=== PATIENT | female | born 1965 | race Two or more races ===

== ENCOUNTER → 2016-05-25 | Outpatient (CLI) | payer OTHER ==
--- NOTE | 2016-05-25 13:05 | WOMENS IMAGING REPORT ---
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 TECHNIQUE: Dual-Energy X-ray Absorptiometry (DEXA) of the AP Spine and Hip. LIMITATIONS: None. FINDINGS: LUMBAR SPINE: The bone mineral density (BMD) measured from L1-L4 in the AP projection correlates with a T-score of -2.4, which is osteopenia as defined by the World Health Organization. HIP: The bone mineral density (BMD) measured in the left hip correlates with a T-score of -2.0, which is o steopenia as defined by the World Health Organization. COMMENT: Osteopenia. The World Health Organization defines low BMD as follows: T-score: Normal: Greater than -1.0 Osteopenia: Between -1.0 and -2.5 Osteoporosis: Less than -2.5 without fractures Established osteoporosis: Less than -2.5 with fractures In general, you may wish to consider: Diagnosis Treatment Follow-up DEXA Normal BMD Prevention 2-3 years Osteopenia Prevention/Therapy 1-2 years Osteoporosis Therapy Yearly TECHNICAL DOCUMENTATION: JOB ID: [id number] [email or web address]- All Rights Reserved
== END ==
LOC: WI 10:19
PROVIDERS: ATTEND Specialist
DX: Z79.811 Long term (current) use of aromatase inhibitors (principal)
CPT/HCPCS: 77080

== ENCOUNTER 2020-04-15 08:16 | Emergency (ER) | payer BC, OTHER ==
[2020-04-15] MEDS ORDERED: NORMAL SALINE 1000 ML 1,000 ML IV ONE (09:54)
--- NOTE | 2020-04-15 10:16 | ER Document Report ---
Entered by RYLEE FISCHER SCRIBE 04/15/20 0853 Acting as scribe for:JUAN LEONG MD ED Respiratory Problem - General Chief Complaint: Shortness Of Breath Stated Complaint: COUGH Time Seen by Provider: 04/15/20 08:44 Primary Care Provider: CIRO ANDREWS MD [ACTIVE STAFF] - Follow up as needed Mode of Arrival: Ambulatory Information source: Patient Notes: This 55 year old female patient who recently tested positive for COVID on 04/13 presents to the ED today with complaints of shortness of breath for the past x1 week. Patient reports associated sore throat and dry nonproductive cough. She notes it hurts to cough. Denies fever or chills. Per nursing, patient was reportedly had O2 sats of 93% on RA and was placed on 2L supplemental O2 via NC with O2 sats improving to 96%. TRAVEL OUTSIDE OF THE [place] IN LAST 30 DAYS: No - Related Data Allergies/Adverse Reactions: No Known Allergies Allergy (Verified 03/11/15 09:18) Past Medical History - General Information source: Patient, [facility] Records - Social History Smoking Status: Unknown if Ever Smoked Smoking Education Provided: No Family History: Reviewed & Not Pertinent Patient has suicidal ideation: No Patient has homicidal ideation: No - Past Medical History Cardiac Medical History: Reports: Hx Hypertension - no meds Endocrine Medical History: Reports: Hx Hypothyroidism Malignancy Medical History: Reports: Hx Breast Cancer - In remission since 2014 Musculoskeletal Medical History: Reports Hx Arthritis - osteo - Immunizations Hx Diphtheria, Pertussis, Tetanus Vaccination: No Review of Systems - Review of Systems Constitutional: See HPI. denies: Chills, Fever EENT: See HPI, Throat pain Cardiovascular: No symptoms reported Respiratory: See HPI, Cough, Short of breath. denies: Sputum Gastrointestinal: No symptoms reported Genitourinary: No symptoms reported Female Genitourinary: No symptoms reported Musculoskeletal: No symptoms reported Skin: No symptoms reported Hematologic/Lymphatic: No symptoms reported Neurological/Psychological: No symptoms reported -: Yes All other systems reviewed and negative Physical Exam - Vital signs Vitals: Temp Pulse Resp BP Pulse Ox 98.2 F 79 18 127/79 H 95 04/15/20 08:21 04/15/20 08:21 04/15/20 08:21 04/15/20 08:21 04/15/20 08:21 Interpretation: Normal - General General appearance: Alert - resting comfortably In distress: None - HEENT Head: Normocephalic, Atraumatic Eyes: Normal Pupils: PERRL - Respiratory Respiratory status: Other - 97% O2 sats via NC Chest status: Nontender Breath sounds: Decreased air movement - Diminished breath sounds Chest palpation: Normal - Cardiovascular Rhythm: Regular Heart sounds: Normal auscultation, S1 appreciated, S2 appreciated Murmur: No Friction rub: No Gallop: None auscultated - Abdominal Inspection: Normal Distension: No distension Bowel sounds: Normal Tenderness: Nontender - Abdomen soft Organomegaly: No organomegaly - Back Back: Normal, Nontender - Extremities General upper extremity: Normal inspection General lower extremity: Normal inspection. No: Edema - Neurological Neuro grossly intact: Yes Orientation: AAOx4 [place] Coma Scale Eye Opening: Spontaneous [place] Coma Scale Verbal: Oriented [place] Coma Scale Motor: Obeys Commands [place] Coma Scale Total: 15 - Psychological Associated symptoms: Normal affect, Normal mood - Skin Skin Temperature: Warm Skin Moisture: Dry Skin Color: Normal Course - Re-evaluation Re-evalutation: 04/15/20 14:04 Patient at rest on room air has a saturation of 97%. - Vital Signs Vital signs: Temp Pulse Resp BP Pulse Ox 98.2 F 79 18 127/79 H 97 04/15/20 08:21 04/15/20 08:21 04/15/20 12:33 04/15/20 08:21 04/15/20 13:00 04/15/20 14:04 Vital signs stable afebrile respiratory rate 18 - Laboratory Result Diagrams: 04/15/20 10:00 04/15/20 10:00 Laboratory results interpreted by me: 04/15/20 04/15/20 10:00 10:00 APTT 36.7 H D-Dimer 0.83 H Ferritin 265.00 H AST 46 H ALT 40 H Lactate Dehydrogenase 270 H C-Reactive Protein 75.3 H Laboratories consistent with COVID-19 shows a C-reactive protein 75 LDH the 8270 ferritin of 265 and a D-dimer of 0.8 - Diagnostic Test Radiology reviewed: Image reviewed, Reports reviewed Radiology results interpreted by me: 04/15/20 13:42 Chest X-Ray 04/15/20 09:51 IMPRESSION: Bilateral basilar predominant peripheral parenchymal opacities. Patchy peripheral opacities are typical finding in the setting of COVID-19. Chest/Abdomen CTA 04/15/20 11:15 IMPRESSION: 1. Slightly limited study. No obvious pulmonary emboli. No aortic aneurysm or dissection. 2. Predominantly posterior subpleural opacification: Pulmonary fibrosis versus an atypical infectious/ inflammatory process such as COVID-19. 3. Prominent right lobe of the thyroid gland. Consider thyroid ultrasound if clinically indicated. 04/15/20 14:06 Chest x-ray shows peripheral parenchymal opacities typical for COVID-19 CTA of chest and abdomen shows no obvious pulmonary emboli patient has predominantly posterior subpleural opacifications pulmonary fibrosis versus atypical infectious/inflammatory process is COVID-19. Patient reports that she was tested positive for Covid 19 at an outpatient clinic on April 13, [id number] Discharge - Discharge Clinical Impression: COVID-19 Condition: Good Disposition: HOME, SELF-CARE Instructions: COVID-19 Guidance for Persons Under Investigation Referrals: CIRO ANDREWS MD [ACTIVE STAFF] - Follow up as needed I personally performed the services described in the documentation, reviewed and edited the documentation which was dictated to the scribe in my presence, and it accurately records my words and actions.
[2020-04-15 10:21] LABS: ABSOLUTE EOSINOPHILS # (AUTO) 0.1 10^3/uL (0.0-0.6); ABSOLUTE LYMPHOCYTES (AUTO) 1.3 10^3/uL (0.5-4.7); ABSOLUTE MONOCYTES (AUTO) 0.4 10^3/uL (0.1-1.4); ABSOLUTE NEUT (AUTO) 4.7 10^3/uL (1.7-8.2); BASOPHILS % (AUTO) 0.4 % (0-2); HEMATOCRIT 40.9 % (36.0-47.0); HEMOGLOBIN 13.5 g/dL (12.0-15.5); LYMPHOCYTES % (AUTO) 19.7 % (13-45); MEAN CORPUSCULAR HEMOGLOBIN 29.8 pg (27.0-33.4); MEAN CORPUSCULAR VOLUME 90 fl (80-97); MONOCYTES % (AUTO) 6.8 % (3-13); PLATELET COUNT 291 10^3/uL (150-450); RED BLOOD COUNT 4.54 10^6/uL (3.72-5.28); SEGMENTED NEUTROPHILS % (AUTO) 72.1 % (42-78); TOTAL CELLS COUNTED % (AUTO) 100 %; WHITE BLOOD COUNT 6.5 10^3/uL (4.0-10.5)
[2020-04-15 10:29] LABS: INTERNATIONAL RATION (INR) 0.96
[2020-04-15 10:32] LABS: D-DIMER 0.83 ug/mL (0.00-0.50)
[2020-04-15 10:44] LABS: ALBUMIN 4.3 g/dL (3.5-5.0); ALKALINE PHOSPHATASE 119 U/L (38-126); ANION GAP 10 (5-19); ASPARTATE AMINO TRANSFERASE 46 U/L (14-36); BILIRUBIN,DIRECT 0.2 mg/dL (0.0-0.4); BILIRUBIN,TOTAL 0.9 mg/dL (0.2-1.3); BLOOD UREA NITROGEN 10 mg/dL (7-20); C-REACTIVE PROTEIN 75.3 mg/L (<10.0); CALCIUM 9.5 mg/dL (8.4-10.2); CARBON DIOXIDE 28 mmol/L (22-30); CHLORIDE 102 mmol/L (98-107); GLUCOSE 92 mg/dL (75-110); POTASSIUM 4.2 mmol/L (3.6-5.0); TOTAL PROTEIN 7.7 g/dL (6.3-8.2)
--- NOTE | 2020-04-15 10:54 | RADIOLOGY REPORT (SQ) ---
EXAM DESCRIPTION: CHEST SINGLE VIEW IMAGES COMPLETED DATE/TIME: 04/15/2020 10:40 am REASON FOR STUDY: sobr/covid postive COMPARISON: PA and lateral views of the chest from 05/27/2015. EXAM PARAMETERS: NUMBER OF VIEWS: One view. TECHNIQUE: An AP view of the chest was obtained. RADIATION DOSE: NA LIMITATIONS: None. FINDINGS: LUNGS AND PLEURA: Bilateral basilar predominant peripheral parenchymal opacities. The cos tophrenic sulci are blunted. There is no pneumothorax. MEDIASTINUM AND HILAR STRUCTURES: No mediastinal or hilar contour abnormality. HEART AND VASCULAR STRUCTURES: The cardiac silhouette and pulmonary vasculature are within normal cordova its. BONES: No acute findings. HARDWARE: None in the chest. OTHER: No other finding. IMPRESSION: Bilateral basilar predominant peripheral parenchymal opacities. Patchy peripheral opaci ties are typical finding in the setting of COVID-19. TECHNICAL DOCUMENTATION: JOB ID: [id number] 2010 [employer]- All Rights Reserved Reading location - IP/workstation name: [email or web address]
[2020-04-15 10:59] LABS: PARTIAL THROMBOPLASTIN TIME 36.7 SEC (23.5-35.8)
--- NOTE | 2020-04-15 12:55 | RADIOLOGY REPORT (SQ) ---
EXAM DESCRIPTION: CTA CHEST IMAGES COMPLETED DATE/TIME: 04/15/2020 12:33 pm REASON FOR STUDY: Elevated D dimer/positive COVID 19 COMPARISON: None. TECHNIQUE: CT scan of the chest performed using helical scanning technique with dynamic intravenous contrast injection. Images reviewed with lung, soft tissue and bone windows. Reconstructed coronal and sagittal MPR images reviewed. Additional 3 dimensional post-processing performed to develop Maximal Intensity Projection images (WI P). All images stored on PACS. All CT scanners at this facility use dose modulation, iterative reconstruction, and/or weight based d osing when appropriate to reduce radiation dose to as low as reasonably achievable (ALARA). [facility]: Dose Right [facility]: CareDose [facility]: Dose Right [facility]: Teradose 4D [facility]: Watch-Sites CONTRAST TYPE AND DOSE: contrast/concentration: Isovue 350.00 mmol/ml; Total Contrast Delivered: 75. 0 ml; Total Saline Delivered: 47.4 ml Contrast bolus adequate for pulmonary arteries and aorta. RENAL FUNCTION: BUN 10 creatinine 0.8 RADIATION DOSE: CT Rad equipment meets quality standard of care and radiation dose reduction techniq ues were employed. CTDIvol: 9.9 - 14.3 mGy. DLP: 500 mGy-cm. . LIMITATIONS: Less than optimal opacification of the pulmonary arteries. FINDINGS: LUNGS AND PLEURA: Predominantly posterior subpleural opacification. No pleural effusion. No masses. AORTA AND GREAT VESSELS: No aneurysm. No dissection. HEART: No pericardial effusion. Moderate to marked coronary artery calcifications. PULMONARY ARTERIES: No obvious emboli in the main pulmonary arteries or major branches. HILAR AND MEDIASTINAL STRUCTURES: No identified masses or abnormal nodes. HARDWARE: None in the chest. UPPER ABDOMEN: No significant findings. Limited exam. THYROID AND OTHER SOFT TISSUES: Right lobe of the thyroid is prominent and somewhat heterogeneous. BONES: No acute or significant finding. 3D MIPS: Confirm above findings. OTHER: No other significant finding. IMPRESSION: 1. Slightly limited study. No obvious pulmonary emboli. No aortic aneurysm or dissect ion. 2. Predominantly posterior subpleural opacification: Pulmonary fibrosis versus an atypical infectio us/ inflammatory process such as COVID-19. 3. Prominent right lobe of the thyroid gland. Consider thyroid ultrasound if clinically indicated. COMMENT: Quality ID # [id number]: Final reports with documentation of one or more dose reduction techniques (e.g., Automated exposure control, adjustment of the mA and/or kV according to patient size, use of iterative reconstruction technique) TECHNICAL DOCUMENTATION: JOB ID: [id number] 2010 [employer]- All Rights Reserved Reading location - IP/workstation name: [email or web address]
[2020-04-15] MEDS ORDERED: ACETAMINOPHEN 325 MG TABLET PO ONE (13:27)
[2020-04-15 14:56] VITALS: BP 127/74
== END 2020-04-15 14:57 | disposition home or self-care (01) ==
LOC: ER 08:16
DX: U07.1 COVID-19 (principal); R06.02 Shortness of breath; J02.9 Acute pharyngitis, unspecified; R05 Cough; I10 Essential (primary) hypertension; Z85.3 Personal history of malignant neoplasm of breast
CPT/HCPCS: 99285; 96360; 96361; 36415; 87040; 82728; 83605; 83615; 85025; 85610; 85730; 86140; 80053; 85379; 83880; 71045; 71275; J7030